=== PATIENT | female | born 1975 | race Caucasian/White ===

== ENCOUNTER 2016-11-22 07:04 | Day surgery (SDC) | payer OTHER ==
[~2016-11-22 07:04] MED LIST: Buffered Lidocaine 0.9% SYRIN* 5 ML/SYR SYRINGE INTRADERM ONE
[2016-11-22] MEDS ORDERED: Buffered Lidocaine 0.9% SYRIN* 5 ML/SYR SYRINGE ONE (07:16)
[2016-11-22] MEDS ORDERED: Lidocaine 1% INJ* 10 MG/ML 30 ML SDV ONE (07:17)
[2016-11-22] MEDS ORDERED: Midazolam* 1 MG/ML 2 ML VIAL (2 MG) ONE (08:13)
[2016-11-22] MEDS ORDERED: fentaNYL* 50 MCG/ML 2 ML VIAL (100 MCG VIAL) ONE (08:13)
[2016-11-22] MEDS ORDERED: HYDROcodone/ACETAMIN 5-325 MG* 1 TAB PO PRN (08:20)
[2016-11-22] MEDS ORDERED: Ondansetron INJ* 2 MG/ML VIAL IV PRN (08:20)
[2016-11-22] MEDS ORDERED: Acetaminophen TAB* 325 MG PO PRN (08:20)
[2016-11-22] MEDS ORDERED: Levalbuterol 0.63MG/3ML NEB INH PRN (08:20)
[2016-11-22] MEDS ORDERED: PROCHLORPERAZINE INJ 5 MG/ML 2 ML VIAL IV PRN (08:20)
[2016-11-22] MEDS ORDERED: Famotidine IV* 10 MG/ML 2 ML (20 mg) ONE (08:34)
[2016-11-22] MEDS ORDERED: Ketorolac INJ* 30 MG/ML 1 ML VIAL ONE (08:43)
[2016-11-22] MEDS ORDERED: Propofol* 10 MG/ML 20 ML BTL IV PUSH ONE (08:43)
[2016-11-22] MEDS ORDERED: Lidocaine 2% PF * 5 ML VIAL ONE (08:43)
[2016-11-22] MEDS ORDERED: Dexamethasone IV* 4 MG/ML 1 ML (4 MG) ONE (08:43)
[2016-11-22 09:24] VITALS: BP 123/72
--- NOTE | 2016-11-22 14:36 | OP ---
DATE OF OPERATION: 11/22/16 [facility] DATE OF : 79 SURGEON: Olivia Murphy MD SOLID WASTE ANALYST: CHIP Weiss ANESTHESIOLOGIST: Dr. Ford ANESTHESIA: Local MAC. ESTIMATED BLOOD LOSS: Zero. TOURNIQUET TIME: About 10 minutes. PRE-OP DIAGNOSIS: Recurrent ganglion of the left wrist. POST-OP DIAGNOSIS: Recurrent ganglion of the left wrist. OPERATIVE PROCEDURE: Removal of recurrent ganglion, left wrist. INDICATIONS: Moni is a 41-year-old female who has had a ganglion cyst excised about 10 years ago, has recurred and recently become more painful. She presents for ganglion cyst excision from the left wrist. DESCRIPTION OF PROCEDURE: The patient was brought to the operating room, was given a sedation anesthetic and a local infiltration of 10 cc of 1% plain lidocaine. The skin of her left hand and forearm was prepped and draped in usual sterile fashion. The hand and forearm were exsanguinated and then tourniquet elevated to 250 mmHg. Previous scar was incised and we dissected bluntly through the subcutaneous tissue. Ganglion cyst was carefully dissected away from the radial artery and its branches and removed with its stalk and a portion of the wrist joint capsule. The edges of the capsule were then cauterized with a Bovie. The wound was irrigated and skin edges were reapproximated with a 4-0 nylon suture. The wound was dressed with Xeroform, 4x4's, Webril and an Jose wrap. Patient tolerated the procedure well, was brought to recovery room in good condition. [id number]/[facility] #: [id number] [facility]
== END 2016-11-22 09:40 | disposition home or self-care (01) ==
LOC: OREAST 07:04
PROVIDERS: ATTEND Orthopaedic Surgery
DX: M67.432 Ganglion, left wrist (principal); E11.9 Type 2 diabetes mellitus without complications; Z79.84 Long term (current) use of oral hypoglycemic drugs; F17.210 Nicotine dependence, cigarettes, uncomplicated; E78.00 Pure hypercholesterolemia, unspecified; E66.01 Morbid (severe) obesity due to excess calories; Z68.37 Body mass index [BMI] 37.0-37.9, adult
CPT/HCPCS: 88304; J1100; J1885; J2001; J2250; J2704; J3010

== ENCOUNTER 2017-07-21 08:19 | Emergency (ER) | payer OTHER ==
--- NOTE | 2017-07-21 10:10 | UC ---
Complaint Female HPI - HPI Summary HPI Summary: 5 DAYS OF LEFT GROIN PAIN RADIATING TO LEFT FLANK. TODAY THOUGHT HER URINE LOOKED CLOUDY. DENIES ANY DYSURIA OR VISIBLE BLOOD IN URINE. NO FEVER OR NAUSEA. HAS HAD LOOSE STOOLS FOR A FEW WEEKS. STATES SHE HAS HAD KIDNEY STONES IN THE PAST. - History Of Current Complaint Chief Complaint: UCGeneralIllness Stated Complaint: LOWER ABD/SIDE PAIN Time Seen by Provider: 07/21/17 10:04 Hx Obtained From: Patient Hx Last Menstrual Period: 07/13/16 Onset/Duration: Gradual Onset, Lasting Days, Still Present Timing: Constant Severity Initially: Moderate Severity Currently: Moderate Pain Intensity: 7 Pain Scale Used: 0-10 Numeric Character: Sharp Aggravating Factor(s): Movement Alleviating Factor(s): Nothing Associated Signs And Symptoms: Positive: Back Pain. Negative: Fever, Nausea - Allergies/Home Medications Allergies/Adverse Reactions: Allergies Allergy/AdvReac Type Severity Reaction Status Date / Time No Known Allergies Allergy Verified 07/21/17 08:26 PMH/Surg Hx/FS Hx/Imm Hx Endocrine History: Diabetes GI/ History: Kidney Stones - Surgical History Surgical History: Yes Surgery Procedure, Year, and Place: gallbladder. tubal ligation. left wrist surgery - Family History Known Family History: Positive: Diabetes - Social History Alcohol Use: None Substance Use Type: None Smoking Status (MU): Heavy Every Day Tobacco Smoker Type: Cigarettes Amount Used/How Often: 1 PPD Length of Time of Smoking/Using Tobacco: 15+ years Have You Smoked in the Last Year: Yes Review of Systems Constitutional: Negative Respiratory: Negative Cardiovascular: Negative Gastrointestinal: Negative Genitourinary: Other - LEFT FLANK/GROIN PAIN All Other Systems Reviewed And Are Negative: Yes Physical Exam Triage Information Reviewed: Yes Appearance: Well-Nourished, Pain Distress - MODERATE Vital Signs: Initial Vital Signs Temp 98 F 07/21/17 08:27 Pulse 67 07/21/17 08:27 Resp 16 07/21/17 08:27 BP 170/103 07/21/17 08:27 Pulse Ox 100 07/21/17 08:27 Vital Signs Reviewed: Yes Eyes: Positive: Conjunctiva Clear ENT: Positive: Hearing grossly normal Neck: Positive: Supple Respiratory Exam: Normal Cardiovascular Exam: Normal Abdomen Description: Positive: Soft, CVA Tenderness (L), Other: - TTP LLQ. NO RIGIDITY OR REBOUND. Negative: CVA Tenderness (R), Distended, Guarding Musculoskeletal: Positive: No Edema Neurological: Positive: Alert Psychological: Positive: Age Appropriate Behavior Skin: Negative: rashes Diagnostics - Laboratory Diagnostic Studies Completed/Ordered: URINE DIP SP. GR 1.025 - Radiology CT ABD/PELVIS W/O CONTRAST Xray Interpretation: No Acute Changes - 1. NO EVIDENCE FOR ACUTE FINDING OR CAUSE FOR THE PATIENT'S ABDOMINAL PAIN IS SEEN. 2. MILD HEPATOSPLENOMEGALY AND HEPATIC STEATOSIS. 3. STATUS POST CHOLECYSTECTOMY. Radiology Interpretation Completed By: Radiologist Complaint Female Dx - Course Course Of Treatment: CT SCAN UNREVEALING. CONCERN FOR DIVERTICULITIS DESPITE NO EVIDENCE ON NON-CONTRAST CT. WILL SEND TO ER FOR FURTHER EVALUATION. - Differential Dx/Diagnosis Provider Diagnoses: LLQ PAIN/LEFT FLANK PAIN Discharge - Discharge Plan Condition: Stable Disposition: OTHER Discharge Disposition Comment: TO [facility] BY PRIVATE CAR Patient Education Materials: Abdominal Pain (ED) Referrals: Jennifer Chan NP [Primary Care Provider] - If Needed Additional Instructions: CT SCAN WITHOUT CONTRAST UNREVEALING. GO DIRECTLY TO THE [facility] FROM HERE FOR FURTHER EVALUATION.
[2017-07-21] MEDS ORDERED: Ibuprofen TAB* 600 MG PO ONE (10:11)
[2017-07-21 10:46] VITALS: BP 127/62
--- NOTE | 2017-07-21 11:09 | RAD ---
INDICATION: Left flank abdominal pain, history of kidney stones. COMPARISON: Comparison is made with a prior CT of the abdomen and pelvis from November 22, 2008. TECHNIQUE: A CT scan of the abdomen and pelvis was performed without intravenous or oral contrast. Contiguous axial sections were obtained from the lung bases through the symphysis pubis. Images were reconstructed in the coronal and sagittal planes. FINDINGS: The lung bases are clear. No pleural effusion is present. The liver and spleen are mildly enlarged. The liver is decreased in attenuation consistent with fatty infiltration. No significant focal abnormality is seen on this noncontrast study. The patient is status post cholecystectomy. The pancreas appears to be within normal limits. The adrenal glands and kidneys are normal in size. No renal calculi or hydronephrosis is seen. No ureteral or bladder calculi are seen. The aorta is normal in caliber without significant calcific plaque. No significant enlarged retroperitoneal lymph nodes are seen. The stomach, small and large bowel appear nondistended. The appendix is within normal limits. There are scattered diverticuli within the colon which are [id number] in degree in the descending and sigmoid colon. There is no evidence for diverticulitis or colitis. There is a small periumbilical hernia containing fat. The uterus is retroverted and normal in size. No free intraperitoneal air or fluid is seen. No significant focal osseous abnormality is seen. IMPRESSION: 1. NO EVIDENCE FOR ACUTE FINDING OR CAUSE FOR THE PATIENT'S ABDOMINAL PAIN IS SEEN. 2. MILD HEPATOSPLENOMEGALY AND HEPATIC STEATOSIS. 3. STATUS POST CHOLECYSTECTOMY.
== END 2017-07-21 12:35 ==
LOC: UCEAST 08:19
DX: R10.32 Left lower quadrant pain (principal); M54.9 Dorsalgia, unspecified; E11.9 Type 2 diabetes mellitus without complications; Z87.442 Personal history of urinary calculi; Z90.49 Acquired absence of other specified parts of digestive tract; F17.210 Nicotine dependence, cigarettes, uncomplicated
CPT/HCPCS: 74176; 81003; 99212; A9270-GY; G0463

== ENCOUNTER 2017-07-21 13:08 | Emergency (ER) | payer OTHER ==
[2017-07-21] MEDS ORDERED: NS 0.9% 1000 ML* 1,000 ML IV ONE (15:34)
[2017-07-21 16:18] LABS: ABS Basophils 0 10^3/ul (0-0.2); ABS Eosinophils 0.2 10^3/ul (0-0.6); ABS Lymphocytes 2.3 10^3/ul (1.0-4.8); ABS Monocytes 0.4 10^3/ul (0-0.8); ABS Neutrophils 6.3 10^3/ul (1.5-7.7); ABS Nucleated RBC 0 10^3/ul; Eosinophil % 2.5 % (0-6); Hematocrit 38 % (35-47); Mean Corpuscular HGB Conc 34 g/dl (31-36); Mean Corpuscular Hemoglobin 30 pg (27-31); Mean Corpuscular Volume 88 fL (80-97); Mean Platelet Volume 8 um3 (7.4-10.4); Nucleated Red Blood Cells % 0; Platelet Count 216 10^3/ul (150-450); Red Blood Count 4.37 10^6/ul (4.0-5.4); Red Cell Distribution Width 14 % (10.5-15); White Blood Count 9.3 10^3/ul (3.5-10.8)
[2017-07-21 16:27] LABS: EGFR Non-African American 87.4 (>60)
[2017-07-21 16:34] LABS: Urine Appearance Clear; Urine Blood 2+ (Negative); Urine Color Yellow; Urine Ketones Negative (Negative); Urine Protein Negative (Negative); Urine Urobilinogen Negative (Negative)
--- NOTE | 2017-07-21 17:36 | RAD ---
HISTORY: Left lower quadrant pain, irregular bleeding COMPARISONS: None relevant TECHNIQUE: Multiple transverse and longitudinal ultrasound images were obtained of the pelvis using grayscale, color Doppler, and spectral Doppler imaging using the transabdominal and endovaginal transducers. FINDINGS: UTERUS: The uterus measures 8.6 x 5.4 x 5.2 cm. The uterus is normal in shape, size, contour, and echotexture. ENDOMETRIUM: The endometrial stripe is smooth. The endometrium measures 0.6 cm in thickness. CUL-DE-SAC: There is no free fluid within the cul-de-sac. RIGHT OVARY: The right ovary measures 3.4 x 1.8 x 2 cm. Normal arterial and venous waveforms are identifiable within the ovary on spectral Doppler imaging. LEFT OVARY: The left ovary measures 3.6 x 1.8 x 1.9 cm. Normal arterial and venous waveforms are identifiable within the ovary on spectral Doppler imaging. BLADDER: The visualized bladder is unremarkable. OTHER: None IMPRESSION: NO ACUTE SONOGRAPHIC PATHOLOGY OF THE VISUALIZED PORTION OF THE PELVIS. NO SONOGRAPHIC FEATURES OF TORSION. PLEASE NOTE THAT PARTIAL OR INTERMITTENT TORSION MAY BE SONOGRAPHICALLY NORMAL.
[2017-07-21 18:11] VITALS: BP 130/83
--- NOTE | 2017-07-22 20:51 | ED ---
Jd Murray Jennifer, scribed for Geremias Lima MD on 07/21/17 at 1522 . Abdominal Pain/Female - HPI Summary HPI Summary: The patient is a 41 year old female who was sent from for left lower abdominal and left-sided flank pain that began 4-5 days ago. She describes that her abdomen also feels hard and that from her belly button down it feels stretchy and pully. She additionally complains of diarrhea and cloudy urine. The patient denies fever, chills, dysuria. Her LNMP was at the end of June, but she began bleeding this morning. - History of Current Complaint Chief Complaint: EDAbdPain Stated Complaint: ABD PAIN Time Seen by Provider: 07/21/17 15:09 Hx Obtained From: Patient Hx Last Menstrual Period: 07/13/16 Onset/Duration: Lasting Days - 4-5 days, Still Present Timing: Constant Severity Initially: Moderate Severity Currently: Moderate Pain Intensity: 7 Pain Scale Used: 0-10 Numeric Location: Discrete At: LLQ, Flank - left Radiates to: Flank - left Aggravating Factor(s): Nothing Alleviating Factor(s): Nothing Associated Signs and Symptoms: Positive: Urinary Symptoms - Cloudy urine, Diarrhea. Negative: Fever Allergies/Adverse Reactions: Allergies Allergy/AdvReac Type Severity Reaction Status Date / Time No Known Allergies Allergy Verified 07/21/17 08:26 PMH/Surg Hx/FS Hx/Imm Hx Endocrine/Hematology History: Reports: Hx Diabetes - type 2 History: Reports: Hx Kidney Stones - none recently, in past Sensory History: Denies: Hx Contacts or Glasses, Hx Hearing Aid Opthamlomology History: Denies: Hx Contacts or Glasses - Cancer History Hx Chemotherapy: No - Surgical History Surgery Procedure, Year, and Place: gallbladder. tubal ligation. left wrist surgery Hx Anesthesia Reactions: No Infectious Disease History: No Infectious Disease History: Denies: Traveled Outside the [place] in Last 30 Days - Family History Known Family History: Positive: Diabetes - Social History Alcohol Use: None Substance Use Type: Reports: None Smoking Status (MU): Heavy Every Day Tobacco Smoker Type: Cigarettes Amount Used/How Often: 1 PPD Length of Time of Smoking/Using Tobacco: 15+ years Have You Smoked in the Last Year: Yes Review of Systems Negative: Fever, Chills Positive: Abdominal Pain Genitourinary: Negative - cloudy urine Positive: flank pain. Negative: dysuria All Other Systems Reviewed And Are Negative: Yes Physical Exam - Summary Physical Exam Summary: Appearance: Well-appearing, Well-nourished Skin: Warm, Dry, No rash Eyes: Normal, PERRL, EOMI, sclera anicteric ENT: Normal Neck: Supple, nontender Respiratory: Clear to auscultation Cardiovascular: S1, S2, no murmur, no rub, no gallop Abdomen: Soft, tenderness in LLQ. no organomegaly Bowel sounds: Present Musculoskeletal: Normal, Strength/ROM Intact, no edema, pulses symmetrical Neurological: Normal, A&Ox3, cranial nerves II-XII WNL, follows commands, gait not tested, sensation intact to pin and light touch Psychiatric: affect normal, behavior appropriate, dressed appropriately, judgment intact Triage Information Reviewed: Yes Vital Signs On Initial Exam: Initial Vitals Temp Pulse Resp BP Pulse Ox 97.8 F 79 18 171/80 99 07/21/17 13:18 07/21/17 13:18 07/21/17 13:18 07/21/17 13:18 07/21/17 13:18 Vital Signs Reviewed: Yes Diagnostics - Vital Signs Vital Signs Temp Pulse Resp BP Pulse Ox 07/21/17 13:18 97.8 F 79 18 171/80 99 - Laboratory Result Diagrams: 07/21/17 15:59 07/21/17 15:59 Lab Statement: Any lab studies that have been ordered have been reviewed, and results considered in the medical decision making process. - Additional Comments Diagnostic Additional Comments: Pelvic/Transvaginal Ultrasound. Interpreted by radiologist. IMPRESSION: NO ACUTE SONOGRAPHIC PATHOLOGY OF THE VISUALIZED PORTION OF THE PELVIS. NO SONOGRAPHIC FEATURES OF TORSION. PLEASE NOTE THAT PARTIAL OR INTERMITTENT TORSION MAY BE SONOGRAPHICALLY NORMAL. Dr. Lima has reviewed this report. Abdominal Pain Fem Course/Dx - Course Course Of Treatment: The patient is a 41 year old female who was sent from for left lower abdominal and left-sided flank pain that began 4-5 days ago. In the ED course, the patient was given IV fluids. Bloodwork and Urinalysis were obtained. Pelvic/Transvaginal Ultrasound shows NO ACUTE SONOGRAPHIC PATHOLOGY OF THE VISUALIZED PORTION OF THE PELVIS. NO SONOGRAPHIC. FEATURES OF TORSION. PLEASE NOTE THAT PARTIAL OR INTERMITTENT TORSION MAY BE SONOGRAPHICALLY NORMAL. The patient is diagnosed with dysfunctional uterine bleeding and LLQ pain, etiology uncertain. The patient is instructed to follow up with her primary care physician. - Diagnoses Provider Diagnoses: Dysfunctional uterine bleeding, Left lower quadrant abdominal pain of unknown etiology Discharge - Discharge Plan Condition: Stable Disposition: HOME Referrals: Jennifer Chan NP [Primary Care Provider] - Additional Instructions: RETURN TO THE EMERGENCY DEPARTMENT FOR CHANGING OR WORSENING SYMPTOMS. The documentation as recorded by the Jd pollard Jennifer accurately reflects the service I personally performed and the decisions made by , Geremias Lima MD.
== END 2017-07-21 18:09 | disposition home or self-care (01) ==
LOC: ED 13:08
DX: N93.8 Other specified abnormal uterine and vaginal bleeding (principal); R10.32 Left lower quadrant pain; F17.210 Nicotine dependence, cigarettes, uncomplicated; E11.8 Type 2 diabetes mellitus with unspecified complications; Z87.442 Personal history of urinary calculi
CPT/HCPCS: 36415; 76830; 76856; 80053; 81003; 81015; 83690; 85025; 96360; 99282

== ENCOUNTER 2017-08-19 19:21 | Emergency (ER) | payer OTHER ==
[2017-08-19 19:29] VITALS: BP 140/100
--- NOTE | 2017-08-19 19:39 | UC ---
FLU HPI - HPI Summary HPI Summary: This is a 41 yo female with DM whose daughter was recently diagnosed with the flu. She would like Tamiflu for prophylaxis. Denies any acute complaints. - History of Current Complaint Chief Complaint: UCRespiratory Stated Complaint: FLU-LIKE SYMPTOMS Hx Last Menstrual Period: NOW Pain Intensity: 1 - Allergy/Home Medications Allergies/Adverse Reactions: Allergies Allergy/AdvReac Type Severity Reaction Status Date / Time No Known Allergies Allergy Verified 08/19/17 19:29 Home Medications: Home Medications Ibuprofen TAB* [Advil TAB*] 800 mg PO ONCE PRN 08/19/17 [History Confirmed 08/19] PMH/Surg Hx/FS Hx/Imm Hx Endocrine History: Diabetes - Surgical History Surgical History: Yes Surgery Procedure, Year, and Place: gallbladder. tubal ligation. left wrist surgery - Family History Known Family History: Positive: Diabetes - Social History Alcohol Use: None Substance Use Type: None Smoking Status (MU): Current Every Day Smoker Type: Cigarettes Amount Used/How Often: 1 PPD Length of Time of Smoking/Using Tobacco: 15+ years Have You Smoked in the Last Year: Yes Review of Systems Constitutional: Negative Skin: Negative Eyes: Negative ENT: Negative Respiratory: Negative Cardiovascular: Negative Gastrointestinal: Negative Genitourinary: Negative Motor: Negative Neurovascular: Negative Musculoskeletal: Negative Neurological: Negative Psychological: Negative Is Patient Immunocompromised?: No All Other Systems Reviewed And Are Negative: Yes Physical Exam Triage Information Reviewed: Yes Appearance: Well-Appearing Vital Signs: Initial Vital Signs Temp 96.9 F 08/19/17 19:26 Pulse 78 08/19/17 19:26 Resp 16 08/19/17 19:26 BP 140/100 08/19/17 19:26 Pulse Ox 99 08/19/17 19:26 Vital Signs Reviewed: Yes ENT Exam: Normal ENT: Positive: Normal ENT inspection Neck: Positive: Supple, Nontender Respiratory: Positive: Chest non-tender, Lungs clear. Negative: Crackles, Rhonchi, Wheezing Cardiovascular: Positive: RRR, No Murmur Abdominal Exam: Normal Abdomen Description: Positive: Nontender Neurological Exam: Normal Psychological Exam: Normal Skin Exam: Normal Flu Course/Dx - Course Course Of Treatment: Housefold influenza contact, requesting Tamiflu prophylaxis - Differential Dx/Diagnosis Differential Diagnosis/HQI/PQRI: RSV, Upper Respiratory Infection Provider Diagnoses: 1. Influenza exposure - Rx for Tamiflu prophylaxis Discharge - Discharge Plan Condition: Stable Disposition: HOME Prescriptions: Oseltamivir CAP* [Tamiflu CAP*] 75 mg PO DAILY #10 cap Patient Education Materials: Oseltamivir (By mouth) Referrals: Jennifer Chan NP [Primary Care Provider] - Additional Instructions: Instructions: 1. Take Tamiflu as directed 2. Exercise good handwashing to reduce risk of infection
== END 2017-08-19 19:52 | disposition home or self-care (01) ==
LOC: UCEAST 19:21
DX: Z20.828 Contact with and (suspected) exposure to other viral communicable diseases (principal); F17.210 Nicotine dependence, cigarettes, uncomplicated
CPT/HCPCS: 99212; G0463

== ENCOUNTER 2017-12-28 13:23 | Emergency (ER) | payer OTHER ==
[2017-12-28 14:41] VITALS: BP 149/87
--- NOTE | 2017-12-28 15:42 | RAD ---
HISTORY: neck swelling worsening COMPARISONS: Thyroid ultrasound dated January 22, 2010 TECHNIQUE: Multiple contiguous axial CT scans were obtained of the neck without intravenous contrast, with coronal and sagittal multiplanar reformations. FINDINGS: The study is limited by the lack of intravenous contrast. This limits evaluation of the solid organs and vasculature. BRAIN AND ORBITS: The visualized brain and orbits are normal. PARANASAL SINUSES: The visualized paranasal sinuses are clear. SALIVARY GLANDS: The parotid glands, submandibular glands, sublingual glands are normal. NASAL CAVITY/NASOPHARYNX: The nasal cavity and nasopharynx are normal. ORAL CAVITY/OROPHARYNX: The oral cavity is obscured by streak artifact from dental amalgam. The visualized oral cavity and oropharynx are unremarkable. LARYNGEAL APPARATUS/HYPOPHARYNX: The laryngeal apparatus and hypopharynx are normal. UPPER AIRWAY/UPPER ESOPHAGUS: The visualized upper airway and esophagus are normal. LUNG APICES: The lung apices are clear. THYROID GLAND: The thyroid is heterogeneous and mildly enlarged with several nodules measuring up to 0.8 cm. LYMPH NODES: There are scattered small, less than 1 cm short axis, lymph nodes noted along the anterior and posterior cervical chain. There is no lymphadenopathy by size criteria. VASCULATURE: The vasculature is unremarkable. BONES AND SOFT TISSUES: No bone or soft tissue abnormalities are noted. OTHER: None. IMPRESSION: 1. MULTINODULAR GOITER. 2. NO LYMPHADENOPATHY BY SIZE CRITERIA.
[2017-12-28] MEDS ORDERED: Ketorolac INJ* 60 MG/2 ML VIAL IM ONE (16:08)
--- NOTE | 2017-12-28 16:42 | UC ---
Neck Pain HPI - HPI Summary HPI Summary: Patient is a 42-year-old female who presents to the with complaint of left- sided neck tenderness. She states she had a lower molar tooth pulled 10 days ago and states she feels the swelling and pain is been worsening. She's been using ibuprofen 800 mg without relief. She denies any dysphagia or odynophagia. History of thyroid issues. Denies any fevers, sweats, chills. She is eating and drinking well. She continues on clindamycin. Denies any drainage from the pulled tooth. - History of Current Complaint Chief Complaint: UCDentalProblem Stated Complaint: NECK PAIN Time Seen by Provider: 12/28/17 14:44 Hx Obtained From: Patient Hx Last Menstrual Period: 12/12/17 ?: No Onset/Duration Of Injury/Symptoms: Weeks Mechanism Of Injury: Blunt Trauma Timing: Constant Onset/Duration: Gradual Onset Severity: Moderate Pain Intensity: 9 Pain Scale Used: 0-10 Numeric Location: Discrete At: - left lower molar Aggravating Factors: Nothing Alleviating Factors: Heat Associated Signs & Symptoms: Positive: Swelling - Risk Factors Meningitis Risk Factors: Negative - Allergies/Home Medications Allergies/Adverse Reactions: Allergies Allergy/AdvReac Type Severity Reaction Status Date / Time No Known Allergies Allergy Verified 12/28/17 14:41 Home Medications: Home Medications Clindamycin HCl 300 mg PO TID 12/28/17 [History Confirmed 12/28/17] PMH/Surg Hx/FS Hx/Imm Hx Previously Healthy: Yes - Surgical History Surgical History: Yes Surgery Procedure, Year, and Place: gallbladder. tubal ligation. left wrist surgery - Family History Known Family History: Positive: Diabetes - Social History Occupation: Employed Full-time Lives: With Family Alcohol Use: None Substance Use Type: None Smoking Status (MU): Current Every Day Smoker Type: Cigarettes Amount Used/How Often: 1 PPD Length of Time of Smoking/Using Tobacco: 15+ years Have You Smoked in the Last Year: Yes Review Of Systems Constitutional: Positive: Negative Skin: Positive: Negative ENT: Positive: Other - neck tenderness to the L side Cardiovascular: Positive: Negative Musculoskeletal: Positive: Negative Neurological: Positive: Negative All Other Systems Reviewed And Are Negative: Yes Physical Exam Triage Information Reviewed: Yes Appearance: Well-Appearing, Well-Nourished Vital Signs: Initial Vital Signs Temp 97.7 F 12/28/17 14:37 Pulse 53 12/28/17 14:37 Resp 20 12/28/17 14:37 BP 149/87 12/28/17 14:37 Pulse Ox 100 12/28/17 14:37 Vital Signs Reviewed: Yes Eye Exam: Normal Neck: Positive: Tenderness @ - left neck pain Respiratory Exam: Normal Respiratory: Positive: Chest non-tender, Lungs clear Cardiovascular Exam: Normal Cardiovascular: Positive: RRR Musculoskeletal Exam: Normal Musculoskeletal: Positive: Strength Intact Psychological: Positive: Normal Response To Family Skin Exam: Normal Neck Pain Course/Dx - Course Course Of Treatment: During the course of treatment, the patient's evaluated for pain to the left side of the neck following a dental extraction [address] of the neck obtained without contrast. This did not show any signs pocket of fluid or abscess. Vital signs are stable. No other signs of infection. I believe this is just residual swelling from the pulled tooth. I offered Toradol as an alternative for pain control. She will take the Toradol and follow-up with her dentist she states. I've given her strict return precautions to go to the ED for any worsening or changing symptoms. - Differential Dx/Diagnosis Provider Diagnoses: Tooth extraction pain Discharge - Sign-Out/Discharge Documenting (check all that apply): Patient Departure - Discharge Plan Condition: Stable Disposition: HOME Prescriptions: Ketorolac TAB * [Toradol TAB *] 10 mg PO Q6H #16 tab Referrals: Jennifer Chan, PODIATRY ASSISTANT [Primary Care Provider] - Additional Instructions: Please follow up with dentist and PCP Toradol four times daily DO NOT TAKE IBUPROFEN WITH THIS MEDICATION For any fevers, redness to the area, unable to open jaw or swallow, worsening swelling - go to the ED - Billing Disposition and Condition Condition: STABLE Disposition: Home Attestation Statement User Type: Provider - I was available for consult. This patient was seen by the SIMON. The patient was not presented to, seen by, or examined by me. -Kateryna
== END 2017-12-28 16:38 | disposition home or self-care (01) ==
LOC: UCEAST 13:23
DX: M54.2 Cervicalgia (principal); F17.210 Nicotine dependence, cigarettes, uncomplicated; Z98.818 Other dental procedure status
CPT/HCPCS: 70490; 96372; 99211; G0463; J1885